=== PATIENT | female | born 1980 | race African-American/Black ===

== ENCOUNTER 2018-10-02 06:10 | Emergency (ER) | payer SELFPAY ==
[~2018-10-02] VITALS: Ht 175.3 cm; Wt 90.3 kg
[2018-10-02 06:23] VITALS: BP 146/104
== END 2018-10-02 10:25 | disposition left against medical advice (07) ==
LOC: ER 06:10
DX: H57.11 Ocular pain, right eye (principal); Z53.21 Procedure and treatment not carried out due to patient leaving prior to being seen by health care provider